=== PATIENT | female | born 1995 | race Two or more races ===

== ENCOUNTER → 2024-05-04 | Outpatient (CLI) | payer MEDICAID, SELFPAY ==
--- NOTE | 2024-05-04 09:00 | XR_ITS ---
Examination: MRI chest with intravenous contrast TECHNIQUE: Multiple coronal sagittal axial chest MRI images post intravenous administration 14 cc gadolinium Exam date and time: May 04, 2024 10:20 AM INDICATIONS: Palpable lumps in the chest and axillary regions noticed beginning 2020 with extreme pain FINDINGS: No thoracic aortic aneurysm dilatation Pulmonary artery segments are not enlarged No paratracheal tracheobronchial or bronchopulmonary adenopathy Breast architecture is heterogeneous adenopathy depicted No paratracheal tracheobronchial or bronchopulmonary adenopathy Lung herbert are clear however this is an MRI study not a high resolution CT chest study No discrete dominant breast lesions noted IMPRESSION: No paratracheal tracheobronchial or bronchopulmonary adenopathy Axillary lymphadenopathy is not depicted Recommend high-resolution CT chest post intravenous contrast follow-up
[2024-05-04 09:34] LABS: HCG Qualitative,Urine Negative
== END | disposition home or self-care (01) ==
LOC: SMRI 05-05 07:42
PROVIDERS: PCP Family Medicine; Referring Provider Physician Assistant Medical; Visit Provider Physician Assistant Medical
DX: Z32.00 Encounter for pregnancy test, result unknown (principal); R22.2 Localized swelling, mass and lump, trunk
CPT/HCPCS: 71551; 81025; A9579